=== PATIENT | female | born 1990 | race African-American/Black ===

== ENCOUNTER 2019-06-11 18:15 | Emergency (ER) | payer SELFPAY | END 2019-06-11 19:39 | disposition home or self-care (01) | LOC: ERS 18:15 | DX: I10 Essential (primary) hypertension (principal); F17.210 Nicotine dependence, cigarettes, uncomplicated | CPT/HCPCS: 99281 ==

== ENCOUNTER 2019-10-17 16:17 | Observation (INO) | payer BC, SELFPAY ==
[~2019-10-17 16:17] MED LIST: Iopamidol-370 76% 500 ML 1 ML ONE
[2019-10-17] MEDS ORDERED: Morphine 4 MG/ML VIAL ONE (16:24)
[2019-10-17] MEDS ORDERED: Ondansetron PF 4 MG/2 ML Vial ONE (16:24)
[2019-10-17 16:42] LABS: #Basophils 0.2 thou/uL (0.0-0.2); #Eosinphils 0.1 thou/uL (0.0-0.7); #Lymphocytes 3.4 thou/uL (1.20-3.40); #Monocytes 0.7 thou/uL (0.11-0.59); #Neutrophils 4.6 thou/uL (1.40-6.50); %Basophils 1.9 % (0.0-1.0); %Eosinophils 1.1 % (0.0-10.0); %Lymphocytes 37.7 % (21.0-51.0); %Monocytes 7.6 % (0.0-10.0); %Neutrophils 51.6 % (42.0-75.0); Hemoglobin 12.9 g/dL (12.0-16.0); Mean Corpuscular Hemoglobin 28.1 pg (27.0-31.0); Mean Corpuscular Volume 87.8 fL (78.0-98.0); Mean Platelet Volume 6.9 fL (7.4-10.4); Platelet Count 393 thou/uL (130-400); RBC Distribution Width 12.1 % (11.5-14.5); Red Blood Cell (RBC) Count 4.61 mill/uL (4.20-5.40); White Blood Cell (WBC) Count 8.9 thou/uL (4.8-10.8)
[2019-10-17 17:01] LABS: ALT (SGPT) 24 U/L (8-55); AST (SGOT) 45 U/L (5-34); Albumin 3.9 g/dL (3.5-5.0); Alkaline Phosphatase 58 U/L (40-110); Anion Gap 15 mmol/L (10-20); BUN (Urea Nitrogen) 15 mg/dL (7.0-18.7); Bilirubin, Total 0.2 mg/dL (0.2-1.2); Calc. Creatinine Clearance 0 mL/min (70-130); Calcium 8.5 mg/dL (7.8-10.44); Carbon Dioxide 20 mmol/L (22-29); Chloride 108 mmol/L (98-107); Estimated GFR-MDRD 62; Globulin 2.7 g/dL (2.4-3.5); Glucose 91 mg/dL (70-105); Lipase 33 U/L (8-78); Potassium 3.8 mmol/L (3.5-5.1); Protein, Total 6.6 g/dL (6.0-8.3); Sodium 139 mmol/L (136-145)
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
[2019-10-17] MEDS ORDERED: Ketorolac Tromethamine 30 MG/ML VIAL ONE (17:31)
[2019-10-17] MEDS ORDERED: Morphine 2 MG/ML SYRINGE SLOW IVP PRN (17:48)
[2019-10-17] MEDS ORDERED: hydrALAZINE 20 MG/ML VIAL SLOW IVP PRN (17:48)
[2019-10-17] MEDS ORDERED: Dextrose 50% Abboject 50 ML SYRINGE SLOW IVP PRN (17:48)
[2019-10-17] MEDS ORDERED: Ondansetron PF 4 MG/2 ML Vial IVP PRN (17:48)
[2019-10-17] MEDS ORDERED: Dextrose 5% in Water 1,000 ML IV PRN (17:48)
[2019-10-17] MEDS ORDERED: traMADol HCl 50 MG TAB PO PRN ×2 (17:50)
[2019-10-17] MEDS ORDERED: Adacel (T-DAP) 0.5 ML SYRINGE ONE (17:54)
[2019-10-17] MEDS ORDERED: Lidocaine 1% w/Epinephrine 1:100K 20 ML VIAL ONE (17:54)
[2019-10-17 17:56] LABS: BHCG - Serum Negative (NEGATIVE); Pregs Control Background? CLEAR/WHITE (CLR/WHITE); Pregs Control Bar Appear? YES (CONTROL BAR)
[2019-10-17 17:58] LABS: Bacteria/HPF None Seen HPF (None Seen); Bilirubin Negative (Negative); Blood, Urine 1+ (Negative); Clarity Clear (Clear); Glucose, Urine (Dipstick) Normal (Negative); Leukocyte Negative Leu/uL (Negative); Nitrite Negative (Negative); Protein, Urine (Dipstick) 20 mg/dL (Neg-Trace); RBC/HPF 21-50 HPF (0-3); Squamous Epithelial 0-3 HPF (0-3); Urobilinogen Normal mg/dL (Less than 2); WBC/HPF 0-3 HPF (0-3)
[2019-10-17] MEDS ORDERED: Acetaminophen 500 MG TAB PO SCH (18:00)
[2019-10-17] MEDS ORDERED: Ibuprofen 800 MG TAB PO SCH (18:00)
[2019-10-17 18:26] LABS: Amphetamine Detected (NotDetected); Barbiturates Screen Not Detected (NotDetected); Benzodiazepine Screen Detected (NotDetected); Cocaine Metabolite Screen Detected (NotDetected); Medtox Control Line Valid? VALID (VALID); Medtox Reader # READER 1; Methadone Not Detected (NotDetected); Methamphetamine Detected (NotDetected); Opiate Screen Detected (NotDetected); Oxycodone Screen Not Detected (NotDetected); Phencyclidine (PCP) Not Detected (NotDetected); THC/Cannabinoid Screen Detected (NotDetected); Tricyclic Screen Not Detected (NotDetected)
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
[2019-10-17] MEDS: Acetaminophen 500 MG TAB PO SCH (20:15)
[2019-10-17] MEDS: Ibuprofen 800 MG TAB PO SCH (20:16)
[2019-10-17] MEDS: Gabapentin 300 MG CAP PO SCH (20:16)
[2019-10-17] MEDS: Senokot S 8.6-50 MG TAB PO SCH (20:22)
[2019-10-17 20:53] VITALS: BMI 18.2
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
[2019-10-18] MEDS: Ibuprofen 800 MG TAB PO SCH ×2 (02:48→12:01)
[2019-10-18] MEDS: Acetaminophen 500 MG TAB PO SCH ×3 (02:49→14:39)
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
[2019-10-18 06:23] LABS: #Eosinphils 0.4 thou/uL (0.0-0.7); #Lymphocytes 2.3 thou/uL (1.20-3.40); #Neutrophils 6.3 thou/uL (1.40-6.50); %Basophils 0.5 % (0.0-1.0); %Eosinophils 4.2 % (0.0-10.0); %Lymphocytes 23.2 % (21.0-51.0); %Monocytes 9.5 % (0.0-10.0); %Neutrophils 62.7 % (42.0-75.0); Hemoglobin 12.8 g/dL (12.0-16.0); Mean Corpuscular Hemoglobin 29.3 pg (27.0-31.0); Mean Corpuscular Volume 88.9 fL (78.0-98.0); Mean Platelet Volume 6.9 fL (7.4-10.4); Platelet Count 337 thou/uL (130-400); RBC Distribution Width 12.3 % (11.5-14.5); Red Blood Cell (RBC) Count 4.39 mill/uL (4.20-5.40); White Blood Cell (WBC) Count 10.1 thou/uL (4.8-10.8)
[2019-10-18 06:46] LABS: Anion Gap 11 mmol/L (10-20); BUN (Urea Nitrogen) 10 mg/dL (7.0-18.7); Calc. Creatinine Clearance 87 mL/min (70-130); Calcium 8.3 mg/dL (7.8-10.44); Carbon Dioxide 26 mmol/L (22-29); Chloride 104 mmol/L (98-107); Estimated GFR-MDRD Greater than 90; Glucose 70 mg/dL (70-105); Phosphorus 3.9 mg/dL (2.3-4.7); Sodium 137 mmol/L (136-145)
--- NOTE | 2019-10-18 07:23 | RAD ---
PELVIC RADIOGRAPHS: Date: 10/17/2019 PROVIDED CLINICAL HISTORY: Pelvic fracture. FINDINGS: Correlation is made with the CT examination performed earlier same date. The previously described anterior, superior, and inferior pubic rami fractures near the junction with the pubic body are less radiographically apparent than on CT. Subtle widening of the left sacroiliac joint seen on CT is relatively inconspicuous radiographically. No additional fracture is evident. Th e urinary bladder is distended by contrast material and appears normal. IMPRESSION: Left hemipelvic fractures and associated sacroiliac joint widening are better seen on CT. POS: GIOVANNI
--- NOTE | 2019-10-18 08:02 | RAD ---
SINGLE VIEW CHEST: Date: 10/18/2019 COMPARISON: Chest CT dated 10/17/2019. HISTORY: Follow-up pneumothorax. FINDINGS: Single view of the chest shows normal sized cardiomediastinal silhouette. There is no evidence of con solidation, mass, pneumothorax, or pleural effusion. The bones are unremarkable. IMPRESSION: Unremarkable exam. POS: EAA
[2019-10-18] MEDS ORDERED: Polyethylene Glycol 3350 17 GM Packet PO SCH (09:00)
[2019-10-18] MEDS: Gabapentin 300 MG CAP PO SCH ×2 (09:22→14:40)
[2019-10-18] MEDS: Senokot S 8.6-50 MG TAB PO SCH (09:24)
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
[2019-10-18 16:50] VITALS: BP 118/78; TEMP 98.8
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
== END 2019-10-18 17:15 | disposition home or self-care (01) ==
LOC: ERS 16:17 → SURG B 17:50
PROVIDERS: ADMIT Specialist; ATTEND Specialist
DX: S32.592A Other specified fracture of left pubis, initial encounter for closed fracture (principal); J93.9 Pneumothorax, unspecified; S27.321A Contusion of lung, unilateral, initial encounter; F19.10 Other psychoactive substance abuse, uncomplicated; S01.81XA Laceration without foreign body of other part of head, initial encounter; F17.210 Nicotine dependence, cigarettes, uncomplicated; Z79.899 Other long term (current) drug therapy; V49.40XA Driver injured in collision with unspecified motor vehicles in traffic accident, initial encounter
CPT/HCPCS: 12011; 36415; 70450; 71045; 71260; 72125; 72170; 74177; 80048; 80053; 80306; 80307; 81003; 81015; 83605; 83690; 83735; 84100; 84703; 85025; 90471; 90715; 93005; 96374; 96375; G0378; J1885; J2270; J2405; Q9967

== ENCOUNTER 2022-02-24 21:22 | Emergency (ER) | payer SELFPAY ==
[2022-02-24] MEDS ORDERED: Acetaminophen 500 MG TAB ONE (21:39)
== END 2022-02-24 21:46 | disposition home or self-care (01) ==
LOC: ERS 21:22
DX: I10 Essential (primary) hypertension (principal); F17.210 Nicotine dependence, cigarettes, uncomplicated
CPT/HCPCS: 99283